=== PATIENT | female | born 1955 | race Caucasian/White ===

== ENCOUNTER 2019-07-20 08:45 | Day surgery (SDC) | payer MEDICAID ==
[~2019-07-20] VITALS: Ht 152.4 cm; Wt 81.6 kg
[2019-07-20] VITALS (8 sets, daily range): BP systolic 98–128; BP diastolic 60–81
[2019-07-20] MEDS ORDERED: diphenhydrAMINE 25mg capsule PO PRN (09:25)
[2019-07-20] MEDS ORDERED: normal saline 1,000 ML IV SCH (09:25)
[2019-07-20] MEDS ORDERED: MECL-127 PO (10:07)
[2019-07-20] MEDS ORDERED: PANT40SU2 PO (10:07)
[2019-07-20] MEDS ORDERED: TRAM50TA2 PO (10:07)
[2019-07-20] MEDS ORDERED: LEVO50TA66 PO (10:07)
[2019-07-20] MEDS ORDERED: ZOLP5TAB2 PO (10:07)
[2019-07-20] MEDS ORDERED: SENN-25 PO (10:07)
[2019-07-20] MEDS ORDERED: TIZA4TAB11 PO (10:07)
[2019-07-20 10:44] LABS: EOSINOPHILS # (AUTO) 0.2 X10'3 (0-0.9); EOSINOPHILS % (AUTO) 3.5 % (0-6); HEMATOCRIT 40.8 % (35.0-45.0); HEMOGLOBIN 13.7 g/dl (12.0-16.0); LYMPHOCYTES # (AUTO) 1.2 X10'3 (1.1-4.8); LYMPHOCYTES % (AUTO) 25.9 % (21-51); MEAN CORPUSCULAR HEMOGLOBIN 30.9 PG (27.0-31.0); MEAN CORPUSCULAR HGB CONC 33.7 g/dL (33.0-36.5); MEAN CORPUSCULAR VOLUME 91.8 FL (78-98); MEAN PLATELET VOLUME 7.3 FL (7.4-10.4); MONOCYTES # (AUTO) 0.5 X10'3 (0-0.9); MONOCYTES % (AUTO) 11.4 % (2-12); NEUTROPHILS # (AUTO) 2.7 X10'3 (1.8-7.7); NEUTROPHILS % (AUTO) 58.2 % (42-75); PLATELET COUNT 260 X10'3 (140-440); RED BLOOD COUNT 4.44 X10'6 (4.20-5.60); RED CELL DISTRIBUTION WIDTH 12.9 % (11.5-14.5); WHITE BLOOD COUNT 4.6 X10'3 (4.5-11.0)
[2019-07-20 10:51] LABS: ALBUMIN 3.6 G/DL (3.4-5.0); ANION GAP 7 (8-16); BLOOD UREA NITROGEN 14 MG/DL (7-18); BUN/CREATININE RATIO 13.7 (6.6-38.0); CALCIUM 8.9 MG/DL (8.5-10.1); CHLORIDE 108 MMOL/L (99-107); CREATININE 1.02 MG/DL (0.40-0.90); GLUCOSE 86 MG/DL (70-104); MAGNESIUM 1.9 MG/DL (1.5-2.4); POTASSIUM 4.5 MMOL/L (3.5-5.1); SODIUM 142 MMOL/L (135-145); TOTAL CARBON DIOXIDE 26.7 MMOL/L (24-32); eGFR 55 ML/MIN
[2019-07-20] MEDS ORDERED: midazolam 2 mg/2 ml injection ONE ×2 (12:22→13:22)
[2019-07-20] MEDS ORDERED: iohexol 350MG/ML 100ml bottle IV ONE (12:22)
[2019-07-20] MEDS ORDERED: iohexol 350 MG/ML 50ML vial IV ONE (12:22)
[2019-07-20] MEDS ORDERED: LIDOcaine 1% (10mg/ml)w/preservative injection 20ml MDV ONE (12:22)
[2019-07-20] MEDS ORDERED: fentaNYL/PF 50MCG/1 ML 2ML syringe ONE (12:22)
[2019-07-20] MEDS ORDERED: methylPREDNISolone sod succ 125mg/2ml vial IV ONE (12:50)
[2019-07-20] MEDS ORDERED: famotidine/PF 10 mg/ml inj IV ONE (13:07)
== END 2019-07-20 16:16 | disposition home or self-care (01) ==
LOC: SSTAY O 08:45
PROVIDERS: ATTEND Internal Medicine Cardiovascular Disease
DX: I20.9 Angina pectoris, unspecified (principal); E03.9 Hypothyroidism, unspecified; G89.29 Other chronic pain; E78.5 Hyperlipidemia, unspecified; F32.9 Major depressive disorder, single episode, unspecified; E66.9 Obesity, unspecified; Z68.35 Body mass index [BMI] 35.0-35.9, adult; Z87.01 Personal history of pneumonia (recurrent); Z90.49 Acquired absence of other specified parts of digestive tract; Z98.51 Tubal ligation status; Z90.710 Acquired absence of both cervix and uterus; Z98.890 Other specified postprocedural states; Z91.041 Radiographic dye allergy status; Z79.899 Other long term (current) drug therapy; Z88.8 Allergy status to other drugs, medicaments and biological substances; Z88.2 Allergy status to sulfonamides; Z91.09 Other allergy status, other than to drugs and biological substances; Z88.5 Allergy status to narcotic agent
CPT/HCPCS: 36415; 80048; 83735; 85025; 85610; 93005; 93458; 99152; 99153; C1769; C1894; J1644; J2001; J2250; J2930; J3010; J3490; J7030; Q0163; Q9967; A4620; A6258; C1760

== ENCOUNTER 2021-09-06 09:34 | Emergency (ER) | payer MEDICAID ==
[~2021-09-06] VITALS: Ht 152.4 cm; Wt 72.7 kg
[~2021-09-06 09:34] MED LIST: LEVO50TA66 PO; MECL-127 PO; PANT40SU2 PO; SENN-25 PO; TIZA4TAB11 PO; TRAM50TA2 PO; ZOLP5TAB2 PO
[2021-09-06 09:50] VITALS: BP 101/68
[2021-09-06] MEDS ORDERED: GUAI400T92 PO (11:11)
== END 2021-09-06 11:39 | disposition home or self-care (01) ==
LOC: ER 09:35
DX: U07.1 COVID-19 (principal); Z88.8 Allergy status to other drugs, medicaments and biological substances; Z88.5 Allergy status to narcotic agent; Z88.1 Allergy status to other antibiotic agents; Z88.6 Allergy status to analgesic agent
CPT/HCPCS: 36415; 99283; U0003; U0005